=== PATIENT | female | born 1945 | race Caucasian/White ===

== ENCOUNTER 2017-01-13 13:11 | Outpatient (CLI) | payer OTHER ==
--- NOTE | 2017-01-16 13:07 | Mammography Report ---
DIGITAL SCREENING MAMMOGRAM: 01/13/2017 CLINICAL INDICATION: A 71-year-old with history of benign left breast biopsy, for screening. COMPARISON: 12/2015, 12/2014, 11/2013, 09/2012, 09/2011, 09/2010, 09/2009, 09/2008, 03/2007. TECHNIQUE: Routine CC and MLO projections were obtained of the breasts. FINDINGS: The breasts again demonstrate heterogeneously dense fibroglandular parenchyma bilaterally. Postoperative changes in the left breast are stable. Punctate, typically benign calcifications are p resent. No suspicious masses, clustered microcalcifications, or regions of architectural distortion a re identified. IMPRESSION: BENIGN FINDINGS. RECOMMENDATION: ROUTINE ANNUAL SCREENING UNLESS OTHERWISE CLINICALLY INDICATED. BIRADS CATEGORY 2-BENIGN FINDINGS. STANDARD QUALIFYING STATEMENTS 1. This examination was reviewed with the aid of Computer-Aided Detection (CAD). 2. A negative or benign imaging report should not delay biopsy if clinically suspicious findings are present. Consider surgical consultation if warranted. More than 5% of cancers are not identified by i maging. 3. Dense breasts may obscure an underlying neoplasm. JOB #: [id number] EXT JOB #:[id number]
== END 2017-01-13 13:12 | disposition home or self-care (01) ==
LOC: DI 13:11
PROVIDERS: ATTEND Family Medicine
DX: Z12.31 Encounter for screening mammogram for malignant neoplasm of breast (principal)
CPT/HCPCS: 77067

== ENCOUNTER 2017-02-10 07:03 | Outpatient (CLI) | payer OTHER ==
[2017-02-10 07:54] LABS: ALBUMIN/GLOBULIN RATIO 1.4 (1.0-2.2); BILIRUBIN,TOTAL 0.8 mg/dL (0.2-1.0); BUN - BLOOD UREA NITROGEN 15 mg/dL (6-20); CARBON DIOXIDE - CO2 27 mmol/L (21-32); CHLORIDE 98 mmol/L (101-111); CHOL/HDL RATIO 3.5 (<4.4); CHOLESTEROL 153 mg/dL; CREATININE 0.9 mg/dL (0.4-1.0); GFR - MDRD 62 (>89); GLUCOSE 109 mg/dL (70-100); HDL CHOLESTEROL 44 mg/dL; POTASSIUM 3.9 mmol/L (3.5-5.0); SODIUM 134 mmol/L (135-145); TOTAL PROTEIN 6.7 g/dL (6.7-8.2); TRIGLYCERIDES 117 mg/dL; VLDL CHOLESTEROL 23 mg/dL
[2017-02-10 08:58] LABS: HEMOGLOBIN A1C 0.65 g/dL
== END 2017-02-10 07:04 | disposition home or self-care (01) ==
LOC: LAB 07:03
PROVIDERS: ATTEND Family Medicine
DX: R00.2 Palpitations (principal); I10 Essential (primary) hypertension
CPT/HCPCS: 36415; 80053; 80061; 82043; 83036

== ENCOUNTER 2017-03-06 13:13 | Outpatient (CLI) | payer OTHER ==
[2017-03-06 15:13] LABS: THYROID STIMULATING HORMONE 0.72 uIU/mL (0.34-5.60)
== END 2017-03-06 13:14 | disposition home or self-care (01) ==
LOC: LAB 13:13
PROVIDERS: ATTEND Family Medicine
DX: E03.9 Hypothyroidism, unspecified (principal)
CPT/HCPCS: 36415; 84439; 84443; 84481

== ENCOUNTER 2017-08-10 06:56 | Outpatient (CLI) | payer OTHER ==
[2017-08-10 07:50] LABS: ALBUMIN 4.1 g/dL (3.2-5.5); ALBUMIN/GLOBULIN RATIO 1.4 (1.0-2.2); ALKALINE PHOSPHATASE 90 IU/L (42-121); ALT ALANINE AMINOTRANSFERASE 14 IU/L (10-60); AST ASPARTATE AMINOTRANSFERASE 18 IU/L (10-42); BILIRUBIN,TOTAL 0.9 mg/dL (0.2-1.0); BUN - BLOOD UREA NITROGEN 24 mg/dL (6-20); CALCIUM 9.8 mg/dL (8.5-10.3); CARBON DIOXIDE - CO2 27 mmol/L (21-32); CHLORIDE 102 mmol/L (101-111); CHOL/HDL RATIO 4.1 (<4.4); CHOLESTEROL 180 mg/dL; CREATININE 0.8 mg/dL (0.4-1.0); GFR - MDRD 71 (>89); GLUCOSE 124 mg/dL (70-100); HDL CHOLESTEROL 44 mg/dL; LDL CHOLESTEROL,CALCULATED 102 mg/dL; LDL/HDL RATIO 2.3 (<4.4); SODIUM 140 mmol/L (135-145); TOTAL PROTEIN 7.1 g/dL (6.7-8.2); VLDL CHOLESTEROL 34 mg/dL
== END 2017-08-10 06:57 | disposition home or self-care (01) ==
LOC: LAB 06:56
PROVIDERS: ATTEND Family Medicine
DX: E03.9 Hypothyroidism, unspecified (principal); R73.9 Hyperglycemia, unspecified; E78.5 Hyperlipidemia, unspecified; I10 Essential (primary) hypertension
CPT/HCPCS: 36415; 80053; 80061; 84443

== ENCOUNTER 2017-11-20 09:22 | Day surgery (SDC) | payer OTHER ==
[2017-11-20] MEDS ORDERED: LACTATED RINGERS 1,000 ML IV ONE (09:38)
[2017-11-20] MEDS ORDERED: BENZOCAINE/TETRACAINE/BUTAMBEN SPRAY 56 GM TOP ONE ×2 (10:49→10:54)
[2017-11-20] MEDS ORDERED: LIDO GARGLE 30 ML BOTTLE PO ONE ×3 (10:49→10:54)
[2017-11-20] MEDS ORDERED: LIDO GARGLE 30 ML BOTTLE ONE (10:50)
[2017-11-20] MEDS ORDERED: fentaNYL 100 MCG/2 ML VIAL IVP ONE (11:14)
[2017-11-20] MEDS ORDERED: MIDAZOLAM 2 MG/2 ML VIAL IVP ONE (11:14)
[2017-11-20 11:55] VITALS: BP 92/32
== END 2017-11-20 09:23 | disposition home or self-care (01) ==
LOC: SDS 09:22
PROVIDERS: ATTEND Surgery
PROC: 0DB48ZX Excision of Esophagogastric Junction, Via Natural or Artificial Opening Endoscopic, Diagnostic (ICD-10-PCS; principal; 2017-11-20 10:30)
DX: K21.9 Gastro-esophageal reflux disease without esophagitis (principal); K44.9 Diaphragmatic hernia without obstruction or gangrene; K31.7 Polyp of stomach and duodenum; E03.9 Hypothyroidism, unspecified; I10 Essential (primary) hypertension
CPT/HCPCS: 43239; A9270; J7120; 88305

== ENCOUNTER 2017-12-22 13:05 | Outpatient (CLI) | payer OTHER ==
--- NOTE | 2017-12-25 13:33 | DEXA Report ---
DEXA: 12/22/2017 CLINICAL INDICATION: Postmenopausal. TECHNIQUE: Dual energy x-ray absorptiometry (DXA) was performed on a [employer] system. Regions measured are the AP spine, femoral neck, and, if needed, forearm. COMPARISON: None. In accordance with the International Society for Clinical Densitometry (ISCD) guidelines, data from previous exams may be reanalyzed using current recommendations and techniques. This is done to allow a more accurate basis for comparison with the current study. FINDINGS The data for the lumbar spine is as follows: REGION BMD (g/cm/cm) T-SCORE Z-SCORE L1 1.088 -03 1.4 L2 1.272 0.6 2.3 L3 1.237 0.3 2.0 L4 1.188 -0.1 1.6 L2-L4 1.228 0.2 1.9 NOTE: All evaluable vertebrae are used for classification. The data for the hip is as follows: REGION BMD (g/cm/cm) T-SCORE Z-SCORE Neck 0.720 -2.3 -0.5 TOTAL 0.769 -1.9 -0.3 NOTE: The femoral neck or total proximal femur, whichever is lowest, is used for classification. IMPRESSION WHO CLASSIFICATION BASED ON THE INTERNATIONAL REFERENCE STANDARD IS OSTEOPENIA. FRACTURE RISK IS INCREASED. RECOMMENDATION: Patients with diagnosis of osteoporosis or osteopenia should have regular bone mineral density assessment. For those eligible for Medicare, routine testing is allowed once every 2 years. Testing frequency can be increased for patients who have rapidly progressing disease or for those who are receiving medical therapy to restore bone mass. COMMENT World Health Organization (WHO) definitions for osteoporosis and osteopenia: NORMAL BMD: T-score at 1.0 or higher, fracture risk is low. OSTEOPENIA BMD: T-score between 1.0 and -2.5, fracture risk is increased. OSTEOPOROSIS BMD: T-score at 2.5 or lower, fracture risk high. National Osteoporosis Foundation recommends: 1. Obtain adequate dietary calcium (at least 1200 mg per day) and vitamin D (400 -800 international units per day). 2. Participate, as appropriate, in regular weightbearing and muscle- strengthening exercise. 3. Avoid tobacco use and reduce alcohol and caffeine intake. 4. For more detailed information see the website at www.NOF.org. TD: 12/22/2017 14:18 IESHA
== END 2017-12-22 13:06 | disposition home or self-care (01) ==
LOC: DI 13:05
PROVIDERS: ATTEND Obstetrics & Gynecology
DX: Z13.820 Encounter for screening for osteoporosis (principal); M85.89 Other specified disorders of bone density and structure, multiple sites; Z78.0 Asymptomatic menopausal state
CPT/HCPCS: 77080

== ENCOUNTER 2018-01-22 13:25 | Outpatient (CLI) | payer OTHER ==
--- NOTE | 2018-01-24 11:57 | Mammography Report ---
Procedure Date: 01/22/2018 Accession Number: [id number] / [id number] Procedure: [facility]CCA - Screening Mammo Dig Bilat CPT Code: FULL RESULT: EXAM: Screening Mammo Dig Bilat DATE: 01/22/2018 2:07 PM CLINICAL HISTORY: History of benign left breast biopsy. History of hormone use. TECHNIQUE: Bilateral CC, exaggerated CC and MLO views were obtained. COMPARISON: 01/13/2017, 12/28/2015, 12/23/2014, 11/26/2013, 09/21/2012, 09/23/2011, 09/15/2011, 09/28/2010, and 09/16/2009 FINDINGS: The breast tissue is heterogeneously dense. No suspicious masses, clustered microcalcifications, skin thickening, or regions of architectural distortion are identified. No significant interval change. IMPRESSION: Negative. RECOMMENDATION: Routine annual screening unless otherwise clinically indicated. BIRADS CATEGORY 1: Negative STANDARD QUALIFYING STATEMENTS: 1. This examination was reviewed with the aid of Computer-Aided Detection (CAD). 2. A negative or benign imaging report should not delay biopsy if clinically suspicious findings are present. Consider surgical consultation if warrented. More than 5% of cancers are not identified by imaging. 3. Dense breasts may obscure an underlying neoplasm.
== END 2018-01-22 13:26 | disposition home or self-care (01) ==
LOC: DI 13:25
PROVIDERS: ATTEND Family Medicine
DX: Z12.31 Encounter for screening mammogram for malignant neoplasm of breast (principal)
CPT/HCPCS: 77067